=== PATIENT | male | born 1975 | race Two or more races ===

== ENCOUNTER 2019-09-12 20:58 | Emergency (ER) | payer OTHER ==
[~2019-09-12] VITALS: Ht 182.9 cm; Wt 102.1 kg
--- NOTE | 2019-09-12 23:08 | NUR ---
PT AAOX4. BIBS FOR L PELVIC PAIN CLOSE TO THE HIP BONE, MULTIPLE SCATTERED RED SPOT BUMP ON THE HERNIA REPAIR (LOWER ABD) X 2 MOS.
[2019-09-12 23:34] LABS: BASOPHILS % (AUTO) 0.4 % (0.0-2.0); EOSINOPHILS % (AUTO) 2.1 % (0.0-6.0); HEMATOCRIT 41 % (39-51); HEMOGLOBIN 13.8 g/dL (13.5-17.5); LYMPHOCYTES # (AUTO) 2.4 /CMM (0.8-4.8); MEAN CORPUSCULAR HGB CONC 34 g/dl (31.0-36.0); MEAN CORPUSCULAR VOLUME 87 fL (80-96); MONOCYTES # (AUTO) 0.7 /CMM (0.1-1.30); MONOCYTES % (AUTO) 8.7 % (2.0-12.0); NEUTROPHILS # (AUTO) 4.3 /CMM (1.8-8.9); NEUTROPHILS % (AUTO) 56.8 % (43.0-81.0); PLATELET COUNT (AUTO) 255 /CMM (150-450); RED BLOOD CELL COUNT(AUTO) 4.73 MIL/uL (4.5-6.0); WHITE BLOOD COUNT (AUTO) 7.6 K/uL (4.3-11.0)
--- NOTE | 2019-09-12 23:37 | NUR ---
URINE SENT TO LAB
[2019-09-12 23:42] LABS: CALCIUM, SERUM 9.2 mg/dL (8.5-10.1); POTASSIUM 3.8 mmol/L (3.5-5.1)
[2019-09-12 23:47] LABS: BILIRUBIN,DIRECT 0.1 mg/dL (0.0-0.2); BILIRUBIN,TOTAL 0.3 mg/dL (0.2-1.0); TOTAL PROTEIN, SERUM 7.4 g/dL (6.4-8.2)
[2019-09-13] MEDS ORDERED: IOHEXOL-300 100 ML VIAL IV ONE (00:24)
[2019-09-13 01:58] LABS: APPEARANCE,URINE Clear (CLEAR); BILIRUBIN,URINE Negative (NEGATIVE); BLOOD, URINE Negative Ery/uL (NEGATIVE); COLOR,URINE Yellow (YELLOW); KETONES,URINE 40 (NEGATIVE); LEUKOCYTE ESTERASE ,URINE Negative (NEGATIVE); NITRITE, URINE Negative (NEGATIVE); PH,URINE 5.5 (5.0-8.0); PROTEIN,URINE Negative (NEGATIVE); UGLUCOSE Negative (NEGATIVE); UROBILINOGEN,URINE 0.2 EU/dL (0.2)
--- NOTE | 2019-09-13 02:07 | NUR ---
Patient discharged to home in stable condition. Written and verbal after care instructions given. Patient verbalizes understanding of instruction and RX. vss. Ambulated with steady gait.
[2019-09-13 02:08] VITALS: BP 124/71
== END 2019-09-13 02:15 | disposition home or self-care (01) ==
LOC: ER 20:58
DX: K44.9 Diaphragmatic hernia without obstruction or gangrene (principal); R10.9 Unspecified abdominal pain; B35.4 Tinea corporis; Z90.89 Acquired absence of other organs
CPT/HCPCS: 36415; 74176; 80048; 80076; 81001; 83690; 85025; 99284; Q9967; 81000-TC

== ENCOUNTER 2020-10-08 20:25 | Emergency (ER) | payer OTHER ==
[~2020-10-08] VITALS: Ht 182.9 cm; Wt 93.0 kg
[2020-10-08] MEDS ORDERED: PANTOPRAZOLE 40 MG VIAL ONE (20:58)
[2020-10-08] MEDS ORDERED: PANTOPRAZOLE 40 MG VIAL IV ONE (21:00)
--- NOTE | 2020-10-08 21:01 | NUR ---
PATIENT CAME TO THE ER BED 7 C/O MIDSTERNAL CHEST THAT OCCURRED SINCE LAST YEAR THAT RADIATES TO THE BACK. PATIENT STATES THAT HE HAS BEEN HAVING NIGHT SWEATS SINCE AUGUST 2020 AFTER BEING DISCHARGED FROM HOSPITAL FOR COVID-PNEUMONIA. PATIENT STATES THAT THIS YEAR HAS BEEN STRESSFUL FOR HIM, HAVING 5 RELATIVES CLOSE TO HIM WHO HAD DUE TO COVID COMPLICATIONS. PATIENT IS AAOX4. NO SOB .BREATHING EVENLY AND UNLABORED ON ROOM AIR. CONNECTED TO THE APPLICATION DEVELOPMENT DIRECTOR.
[2020-10-08 21:12] LABS: BASOPHILS # (AUTO) 0.1 /CMM (0.0-0.2); BASOPHILS % (AUTO) 0.6 % (0.0-2.0); EOSINOPHILS % (AUTO) 1.2 % (0.0-6.0); HEMATOCRIT 40 % (39-51); HEMOGLOBIN 13.5 g/dL (13.5-17.5); LYMPHOCYTES # (AUTO) 1.9 /CMM (0.8-4.8); LYMPHOCYTES % (AUTO) 20.4 % (20.0-44.0); MEAN CORPUSCULAR HGB CONC 34 g/dl (31.0-36.0); MEAN CORPUSCULAR VOLUME 86 fL (80-96); MONOCYTES # (AUTO) 0.5 /CMM (0.1-1.30); MONOCYTES % (AUTO) 5.8 % (2.0-12.0); NEUTROPHILS # (AUTO) 6.7 /CMM (1.8-8.9); PLATELET COUNT (AUTO) 240 /CMM (150-450); RED BLOOD CELL COUNT(AUTO) 4.67 MIL/uL (4.5-6.0); WHITE BLOOD COUNT (AUTO) 9.4 K/uL (4.3-11.0)
--- NOTE | 2020-10-08 21:18 | NUR ---
XRAY AT BEDSIDE.
[2020-10-08 21:26] LABS: CALCIUM, SERUM 9.3 mg/dL (8.5-10.1); CREATININE 1.1 mg/dL (0.6-1.3); POTASSIUM 3.7 mmol/L (3.5-5.1)
[2020-10-08 21:31] LABS: ALBUMIN 3.8 g/dL (3.4-5.0); BILIRUBIN,TOTAL 0.3 mg/dL (0.2-1.0); TOTAL PROTEIN, SERUM 7.7 g/dL (6.4-8.2)
[2020-10-08] MEDS ORDERED: PANT20TA2 PO (21:57)
[2020-10-08] MEDS ORDERED: IV NS 0.9% 1,000 ML IV ONE (22:30)
[2020-10-09 00:54] VITALS: BP 134/69
--- NOTE | 2020-10-09 00:54 | NUR ---
Patient discharged to home in stable condition. Written and verbal after care instructions given. Patient verbalizes understanding of instruction.
--- NOTE | 2020-10-09 00:54 | NUR ---
IV removed. Catheter intact and site benign. Pressure and 4x4 applied to site. No bleeding noted.
== END 2020-10-09 00:54 | disposition home or self-care (01) ==
LOC: ER 20:26
DX: R07.89 Other chest pain (principal); K80.80 Other cholelithiasis without obstruction; R42 Dizziness and giddiness; Z90.89 Acquired absence of other organs; Z98.890 Other specified postprocedural states; Z79.899 Other long term (current) drug therapy
CPT/HCPCS: 36415; 71045; 76705; 80053; 83690; 84484 ×2; 85025; 85378; 93005 ×3; 96361; 96374; 99285; C9113; J7030